=== PATIENT | male | born 1975 | race Caucasian/White ===

== ENCOUNTER 2023-03-07 20:44 | Inpatient (IN) | payer MEDICAID ==
[~2023-03-07] VITALS: Ht 177.8 cm; Wt 119.0 kg
[~2023-03-07 20:44] MED LIST: DILT30TA PO; LIS5T GT
[2023-03-07] MEDS ORDERED: hydrALAZINE HCL 20 MG/ML VL IV ONE (21:15)
[2023-03-07] MEDS ORDERED: FUROSEMIDE 40 MG/4 ML VIAL IV ONE (21:15)
[2023-03-07 21:52] LABS: Basophils # (auto) 0.1 10 ^3/uL (0-0.2); Basophils % (auto) 1.4 % (0.0-2.0); Eosinophils # (auto) 0.3 10 ^3/uL (0-0.8); Hematocrit 27.7 % (41.0-53.0); Hemoglobin 9.1 g/dL (13.5-17.5); Lymphocytes % (auto) 11.5 % (10.0-50.0); Mean Corpuscular Hgb Conc. 32.9 g/dL (32.0-36.0); Mean Corpuscular Volume 88.3 fL (80.0-100.0); Monocytes # (auto) 0.5 10 ^3/uL (0-1.3); Monocytes % (auto) 6.4 % (0.0-12.0); Neutrophils # (auto) 6.4 10 ^3/uL (1.6-8.6); Neutrophils % (auto) 76.7 % (37.0-80.0); Red Blood Cells 3.14 10^6/uL (4.5-5.90); Red Cell Distribution Width 15.4 % (11.8-14.3); White Blood Cell 8.4 10^3/uL (4.4-10.8)
[2023-03-07 22:13] LABS: Albumin 3.2 g/dL (3.4-5.0); Calcium 8.6 mg/dL (8.5-10.1); Magnesium 1.9 mg/dL (1.6-2.6)
[2023-03-07 22:18] LABS: BUN/Creatinine Ratio 11.9 (10.0-20.0); Bilirubin, Total 1.6 mg/dL (0.2-1.0)
[2023-03-07 22:19] LABS: INR 1.3 (0.9-1.15)
[2023-03-07 22:20] LABS: Urine Bacteria FEW /hpf (None Seen); Urine Blood 2+ /uL (Negative); Urine Hyaline Cast MOD /lpf (0 - 2); Urine Mucus FEW (None Seen); Urine Specific Gravity 1.017 (1.001-1.035); Urine WBC 17 /hpf (0 - 3)
[2023-03-07] MEDS ORDERED: AMPICILLIN & SULBACTAM SODIUM 3 GM in SODIUM CHL 0.9% 100 ML IV ONE (22:30)
[2023-03-07 22:37] LABS: Alcohol, Urine < 3.0 mg/dL (0-10); Amphetamine Screen, Urine POSITIVE (NEGATIVE); Barbiturate Scree,Urine NEGATIVE (NEGATIVE); Benzodiazephine Screen, Urine NEGATIVE (NEGATIVE); Cannabinoid Screen, Urine NEGATIVE (NEGATIVE); Cocaine Screen, Urine NEGATIVE (NEGATIVE); Opiate Scree,Urine NEGATIVE (NEGATIVE); Phencyclidine Screen, Urine NEGATIVE (NEGATIVE)
[2023-03-07] MEDS ORDERED: NITROGLYCERIN 0.4 MG SL TAB SL PRN (23:00)
[2023-03-07] MEDS ORDERED: hydrALAZINE HCL 20 MG/ML VL IV PRN (23:00)
[2023-03-07] MEDS ORDERED: DOCUSATE SOD 100 MG CAP PO PRN (23:00)
[2023-03-07] MEDS ORDERED: DEXTROSE (50%) 50ML SYRG IV PRN (23:00)
[2023-03-07] MEDS ORDERED: ASPirin 81 mg TAB PO ONE (23:00)
[2023-03-07] MEDS ORDERED: MORPHINE SULFATE INJ 2 MG/ml SYRG IV PRN (23:00)
[2023-03-07] MEDS ORDERED: ONDANSETRON HCL 4 MG/2 ML VIAL IV PRN (23:00)
[2023-03-07] MEDS ORDERED: CARVEDILOL 12.5 MG TAB PO ONE (23:15)
[2023-03-08] MEDS: AZITHROMYCIN 500MG/ 250ML 250 ML IV SCH (03:55)
[2023-03-08] MEDS ORDERED: DOXYCYCLINE 100MG/250ML 250 ML IV ONE (05:15)
[2023-03-08] MEDS: cefTRIAXone 1GM/50ML D5W 50 ML IV SCH (05:33)
[2023-03-08] MEDS: SODIUM CHLOR 0.9% PF (SALINE LOCK) 10ML VIAL/SYR IV SCH ×2 (05:52→14:04)
[2023-03-08] MEDS: ACCU-CHEK COMFORT CURVE STRIP VI SCH ×3 (06:38→17:05)
[2023-03-08] MEDS: InsuLIN REG 1unit/0.01ml Soln (100units/ml) SC SCH ×3 (06:39→17:00)
[2023-03-08 07:42] LABS: Potassium 3.7 mmol/L (3.5-5.1)
[2023-03-08 07:47] LABS: Basophils # (auto) 0.1 10 ^3/uL (0-0.2); Eosinophils # (auto) 0.4 10 ^3/uL (0-0.8); Monocytes # (auto) 0.7 10 ^3/uL (0-1.3); Red Blood Cells 2.84 10^6/uL (4.5-5.90)
[2023-03-08 07:49] LABS: Basophils % (auto) 1.3 % (0.0-2.0); Eosinophils % (auto) 4.8 % (0.0-7.0); Hematocrit 25.3 % (41.0-53.0); Hemoglobin 8.2 g/dL (13.5-17.5); Lymphocytes # (auto) 0.8 10 ^3/uL (0.4-5.4); Lymphocytes % (auto) 9.1 % (10.0-50.0); Mean Corpuscular Hgb Conc. 32.6 g/dL (32.0-36.0); Monocytes % (auto) 8.6 % (0.0-12.0); Neutrophils # (auto) 6.3 10 ^3/uL (1.6-8.6); Neutrophils % (auto) 76.2 % (37.0-80.0); Nucleated Red Blood Cells % 0.1 %; Red Cell Distribution Width 15.8 % (11.8-14.3); White Blood Cell 8.3 10^3/uL (4.4-10.8)
[2023-03-08 07:55] LABS: Albumin 2.9 g/dL (3.4-5.0); BUN/Creatinine Ratio 12.2 (10.0-20.0); Bilirubin, Total 1.2 mg/dL (0.2-1.0); Calcium 8.1 mg/dL (8.5-10.1); Total Protein 5.9 g/dL (6.4-8.2)
[2023-03-08] MEDS: FUROSEMIDE 40 MG/4 ML VIAL IV SCH (10:47)
[2023-03-08] MEDS: CARVEDILOL 12.5 MG TAB PO SCH (10:50)
[2023-03-08] MEDS: ASPirin 81 mg TAB PO SCH (10:50)
[2023-03-08] MEDS: amLODIPine BESYLATE 5 MG TAB PO SCH (10:51)
[2023-03-08] MEDS: HYDROcodone-ACET 5/325MG TAB PO PRN (12:33)
[2023-03-08] MEDS ORDERED: hydrALAZINE HCL 20 MG/ML VL IV PRN (13:15)
[2023-03-08 14:14] LABS: Cholesterol 107 mg/dL (< 200); Triglycerides 103 mg/dL (< 150)
[2023-03-08 14:16] LABS: HDL Cholesterol 27 mg/dL (40-59); LDL Cholesterol 67 mg/dL (< 100)
[2023-03-08] MEDS: IBUPROFEN 600 MG TAB PO PRN (20:32)
[2023-03-09] MEDS: ATORVASTATIN 20 MG TAB PO SCH ×2 (02:42→21:55)
[2023-03-09] MEDS: CARVEDILOL 12.5 MG TAB PO SCH ×3 (02:42→21:55)
[2023-03-09] MEDS: ACCU-CHEK COMFORT CURVE STRIP VI SCH ×5 (02:43→21:53)
[2023-03-09] MEDS: InsuLIN REG 1unit/0.01ml Soln (100units/ml) SC SCH ×5 (02:45→21:57)
[2023-03-09] MEDS: SODIUM CHLOR 0.9% PF (SALINE LOCK) 10ML VIAL/SYR IV SCH ×4 (02:51→20:50)
[2023-03-09] MEDS: AZITHROMYCIN 500MG/ 250ML 250 ML IV SCH ×2 (02:52→20:50)
[2023-03-09 03:01] VITALS: BP_SYST 150; BP_SYST 158; BP_DIAS 90; BP_DIAS 95
[2023-03-09] MEDS ORDERED: METF-370 PO (03:29)
[2023-03-09] MEDS ORDERED: FURO1TAB32 PO (03:29)
[2023-03-09] MEDS ORDERED: FLUO-125 PO (03:29)
[2023-03-09] MEDS ORDERED: SPIR25TA8 PO (03:29)
[2023-03-09] MEDS ORDERED: CARV25TA55 PO (03:29)
[2023-03-09] MEDS ORDERED: LISI40TA16 PO (03:29)
[2023-03-09] MEDS ORDERED: CLON0.1T PO (03:29)
[2023-03-09] MEDS ORDERED: ATOR10TA PO (03:29)
[2023-03-09 05:00] VITALS: BP 140/78
[2023-03-09] MEDS: cefTRIAXone 1GM/50ML D5W 50 ML IV SCH (06:52)
[2023-03-09] MEDS: IBUPROFEN 600 MG TAB PO PRN (08:29)
[2023-03-09] MEDS: ASPirin 81 mg TAB PO SCH (08:29)
[2023-03-09] MEDS: FUROSEMIDE 40 MG/4 ML VIAL IV SCH (08:29)
[2023-03-09] MEDS: amLODIPine BESYLATE 5 MG TAB PO SCH (08:30)
[2023-03-09 09:14] VITALS: BP 149/95
[2023-03-09 13:00] VITALS: BP 139/90
[2023-03-09 17:00] VITALS: BP 144/90
[2023-03-09] MEDS: HYDROcodone-ACET 5/325MG TAB PO PRN ×2 (17:06→21:59)
[2023-03-09 22:00] VITALS: BP 146/94
[2023-03-10 04:00] VITALS: BP 137/76
[2023-03-10 05:00] VITALS: BP 137/76
[2023-03-10 05:26] LABS: BUN/Creatinine Ratio 15.3 (10.0-20.0); Calcium 7.9 mg/dL (8.5-10.1); Potassium 3.1 mmol/L (3.5-5.1)
[2023-03-10] MEDS: cefTRIAXone 1GM/50ML D5W 50 ML IV SCH (06:35)
[2023-03-10] MEDS: SODIUM CHLOR 0.9% PF (SALINE LOCK) 10ML VIAL/SYR IV SCH ×3 (06:36→20:50)
[2023-03-10] MEDS: ACCU-CHEK COMFORT CURVE STRIP VI SCH ×4 (06:36→22:51)
[2023-03-10] MEDS: InsuLIN REG 1unit/0.01ml Soln (100units/ml) SC SCH ×4 (06:44→22:55)
[2023-03-10 08:01] LABS: Urine Bacteria FEW /hpf (None Seen); Urine Blood 1+ /uL (Negative); Urine Specific Gravity 1.005 (1.001-1.035); Urine WBC 1 /hpf (0 - 3)
[2023-03-10] MEDS ORDERED: POTASSIUM CHL 20 Meq TABLET PO ONE (09:00)
[2023-03-10] MEDS ORDERED: POTASSIUM EFFERVESENT TAB 25 MEQ PO ONE (09:00)
[2023-03-10 09:01] VITALS: BP 147/99
[2023-03-10] MEDS: FUROSEMIDE 40 MG/4 ML VIAL IV SCH (10:11)
[2023-03-10] MEDS: ASPirin 81 mg TAB PO SCH (10:12)
[2023-03-10] MEDS: CARVEDILOL 12.5 MG TAB PO SCH ×3 (10:12→22:50)
[2023-03-10] MEDS: amLODIPine BESYLATE 5 MG TAB PO SCH (10:14)
[2023-03-10 13:08] VITALS: BP 142/96
[2023-03-10] MEDS ORDERED: MAGNESIUM SULFATE 1GM/100ML 100 ML IV ONE (14:45)
[2023-03-10 17:00] VITALS: BP 137/92
[2023-03-10] MEDS: HYDROcodone-ACET 5/325MG TAB PO PRN (20:49)
[2023-03-10] MEDS: AZITHROMYCIN 500MG/ 250ML 250 ML IV SCH (20:50)
[2023-03-10 22:00] VITALS: BP 133/85
[2023-03-10] MEDS: ATORVASTATIN 20 MG TAB PO SCH (22:50)
[2023-03-11 05:00] VITALS: BP 149/90
[2023-03-11] MEDS: SODIUM CHLOR 0.9% PF (SALINE LOCK) 10ML VIAL/SYR IV SCH ×3 (05:37→21:11)
[2023-03-11] MEDS: cefTRIAXone 1GM/50ML D5W 50 ML IV SCH (05:37)
[2023-03-11] MEDS: ACCU-CHEK COMFORT CURVE STRIP VI SCH ×4 (06:23→21:11)
[2023-03-11] MEDS: InsuLIN REG 1unit/0.01ml Soln (100units/ml) SC SCH ×4 (06:25→21:09)
[2023-03-11 07:24] LABS: Basophils # (auto) 0.1 10 ^3/uL (0-0.2); Basophils % (auto) 1.4 % (0.0-2.0); Eosinophils # (auto) 0.5 10 ^3/uL (0-0.8); Monocytes # (auto) 0.5 10 ^3/uL (0-1.3)
[2023-03-11 07:27] LABS: Hematocrit 24.7 % (41.0-53.0); Hemoglobin 8.3 g/dL (13.5-17.5); Lymphocytes % (auto) 15.1 % (10.0-50.0); Mean Corpuscular Hemoglobin 29.6 pg (28.0-32.0); Mean Corpuscular Hgb Conc. 33.6 g/dL (32.0-36.0); Mean Corpuscular Volume 88.1 fL (80.0-100.0); Monocytes % (auto) 8.1 % (0.0-12.0); Neutrophils # (auto) 4.5 10 ^3/uL (1.6-8.6); Neutrophils % (auto) 68.4 % (37.0-80.0); Red Cell Distribution Width 15.9 % (11.8-14.3); White Blood Cell 6.6 10^3/uL (4.4-10.8)
[2023-03-11 07:38] LABS: Potassium 3.9 mmol/L (3.5-5.1)
[2023-03-11 07:43] LABS: Calcium 8.4 mg/dL (8.5-10.1); Magnesium 1.9 mg/dL (1.6-2.6)
[2023-03-11] MEDS ORDERED: ADENOSINE 112 MG in GIVE UN-DILUTED 0 ML IV STA (08:10)
[2023-03-11 09:00] VITALS: BP 152/86
[2023-03-11] MEDS: FUROSEMIDE 40 MG/4 ML VIAL IV SCH (09:45)
[2023-03-11] MEDS: CARVEDILOL 12.5 MG TAB PO SCH ×2 (09:45→21:10)
[2023-03-11] MEDS: ASPirin 81 mg TAB PO SCH (09:46)
[2023-03-11] MEDS: amLODIPine BESYLATE 5 MG TAB PO SCH (09:46)
[2023-03-11 11:13] VITALS: BP 143/82
[2023-03-11 13:00] VITALS: BP 142/94
[2023-03-11] MEDS ORDERED: MAGNESIUM SULFATE 1GM/100ML 100 ML IV ONE (13:30)
[2023-03-11] MEDS ORDERED: POTASSIUM CHL 20 Meq TABLET PO ONE (13:30)
[2023-03-11 14:46] LABS: Hepatitis C Antibody Negative (Negative)
[2023-03-11 17:00] VITALS: BP_SYST 138; BP_SYST 140; BP_DIAS 28; BP_DIAS 80
[2023-03-11] MEDS: HYDROcodone-ACET 5/325MG TAB PO PRN (21:10)
[2023-03-11] MEDS: AZITHROMYCIN 500MG/ 250ML 250 ML IV SCH (21:10)
[2023-03-11] MEDS: ATORVASTATIN 20 MG TAB PO SCH (21:10)
[2023-03-11 22:00] VITALS: BP 146/95
[2023-03-12] VITALS (8 sets, daily range): BP systolic 133–168; BP diastolic 81–100
[2023-03-12 05:56] LABS: Basophils # (auto) 0.1 10 ^3/uL (0-0.2); Eosinophils # (auto) 0.5 10 ^3/uL (0-0.8); Monocytes # (auto) 0.6 10 ^3/uL (0-1.3)
[2023-03-12 05:59] LABS: Basophils % (auto) 1.3 % (0.0-2.0); Eosinophils % (auto) 7.7 % (0.0-7.0); Hemoglobin 8.2 g/dL (13.5-17.5); Lymphocytes % (auto) 14.7 % (10.0-50.0); Mean Corpuscular Hemoglobin 29.3 pg (28.0-32.0); Mean Corpuscular Hgb Conc. 32.9 g/dL (32.0-36.0); Mean Corpuscular Volume 89.1 fL (80.0-100.0); Monocytes % (auto) 8.5 % (0.0-12.0); Neutrophils # (auto) 4.5 10 ^3/uL (1.6-8.6); Neutrophils % (auto) 67.8 % (37.0-80.0); Nucleated Red Blood Cells % 0.1 %; Red Blood Cells 2.81 10^6/uL (4.5-5.90); Red Cell Distribution Width 16.6 % (11.8-14.3); White Blood Cell 6.7 10^3/uL (4.4-10.8)
[2023-03-12 06:08] LABS: BUN/Creatinine Ratio 15.8 (10.0-20.0); Calcium 8.2 mg/dL (8.5-10.1); Magnesium 1.9 mg/dL (1.6-2.6); Potassium 4.1 mmol/L (3.5-5.1)
[2023-03-12] MEDS: InsuLIN REG 1unit/0.01ml Soln (100units/ml) SC SCH ×4 (06:09→22:43)
[2023-03-12] MEDS: cefTRIAXone 1GM/50ML D5W 50 ML IV SCH (06:09)
[2023-03-12] MEDS: SODIUM CHLOR 0.9% PF (SALINE LOCK) 10ML VIAL/SYR IV SCH ×3 (06:11→22:41)
[2023-03-12] MEDS: ACCU-CHEK COMFORT CURVE STRIP VI SCH ×4 (06:11→22:42)
[2023-03-12] MEDS: FUROSEMIDE 40 MG/4 ML VIAL IV SCH (10:00)
[2023-03-12] MEDS: CARVEDILOL 12.5 MG TAB PO SCH ×2 (10:00→22:41)
[2023-03-12] MEDS: ASPirin 81 mg TAB PO SCH (10:00)
[2023-03-12] MEDS: amLODIPine BESYLATE 5 MG TAB PO SCH (10:00)
[2023-03-12] MEDS ORDERED: MAGNESIUM SULFATE 1GM/100ML 100 ML IV ONE (13:15)
[2023-03-12] MEDS ORDERED: VERAPAMIL 2.5MG/ML INJ 2ML VIAL IV ONE (14:47)
[2023-03-12] MEDS ORDERED: MIDAZOLAM HCL 2MG/2ML 2ml VIAL (1mg/ml) ONE (14:47)
[2023-03-12] MEDS ORDERED: fentaNYL CITRATE 100 MCG/2 ML VL ONE (14:47)
[2023-03-12] MEDS ORDERED: ANGIOMAX 250 MG VIAL IV ONE (14:47)
[2023-03-12] MEDS ORDERED: SODIUM CHL 0.9% 50 ML ONE (14:48)
[2023-03-12] MEDS ORDERED: HEPARIN SODIUM (PORCINE) 5000 UNITS/ML 1ML VIAL ONE (14:51)
[2023-03-12] MEDS ORDERED: IOHEXOL 350 MG/ML 100ML IJ ONE ×2 (15:08→15:22)
[2023-03-12] MEDS ORDERED: hydrALAZINE HCL 20 MG/ML VL ONE (16:17)
[2023-03-12] MEDS: HYDROcodone-ACET 5/325MG TAB PO PRN (19:31)
[2023-03-12] MEDS: AZITHROMYCIN 500MG/ 250ML 250 ML IV SCH (22:35)
[2023-03-12] MEDS: ATORVASTATIN 20 MG TAB PO SCH (22:35)
[2023-03-13 01:44] VITALS: BP 154/88
[2023-03-13 05:53] VITALS: BP 135/45
[2023-03-13] MEDS: cefTRIAXone 1GM/50ML D5W 50 ML IV SCH (06:14)
[2023-03-13] MEDS: SODIUM CHLOR 0.9% PF (SALINE LOCK) 10ML VIAL/SYR IV SCH ×2 (06:14→14:00)
[2023-03-13] MEDS: InsuLIN REG 1unit/0.01ml Soln (100units/ml) SC SCH (06:14)
[2023-03-13] MEDS: ACCU-CHEK COMFORT CURVE STRIP VI SCH (06:15)
[2023-03-13 06:18] LABS: Basophils # (auto) 0.1 10 ^3/uL (0-0.2); Basophils % (auto) 1.2 % (0.0-2.0); Eosinophils # (auto) 0.4 10 ^3/uL (0-0.8); Hemoglobin 8.1 g/dL (13.5-17.5); Monocytes # (auto) 0.5 10 ^3/uL (0-1.3); Red Cell Distribution Width 16.3 % (11.8-14.3)
[2023-03-13 06:22] LABS: Eosinophils % (auto) 6.8 % (0.0-7.0); Hematocrit 24.3 % (41.0-53.0); Lymphocytes # (auto) 0.8 10 ^3/uL (0.4-5.4); Lymphocytes % (auto) 13.1 % (10.0-50.0); Mean Corpuscular Hgb Conc. 33.4 g/dL (32.0-36.0); Mean Corpuscular Volume 86.8 fL (80.0-100.0); Monocytes % (auto) 8.6 % (0.0-12.0); Neutrophils # (auto) 4.2 10 ^3/uL (1.6-8.6); Neutrophils % (auto) 70.3 % (37.0-80.0)
[2023-03-13 06:32] LABS: Albumin 2.9 g/dL (3.4-5.0); Potassium 4.3 mmol/L (3.5-5.1)
[2023-03-13 06:37] LABS: BUN/Creatinine Ratio 16.8 (10.0-20.0); Bilirubin, Total 0.8 mg/dL (0.2-1.0); Calcium 8.2 mg/dL (8.5-10.1); Magnesium 2.4 mg/dL (1.6-2.6); Total Protein 6.4 g/dL (6.4-8.2)
[2023-03-13 09:18] VITALS: BP 153/89
[2023-03-13] MEDS: ASPirin 81 mg TAB PO SCH (09:22)
[2023-03-13] MEDS: FUROSEMIDE 40 MG/4 ML VIAL IV SCH (09:22)
[2023-03-13] MEDS: CARVEDILOL 12.5 MG TAB PO SCH (09:23)
[2023-03-13] MEDS: amLODIPine BESYLATE 5 MG TAB PO SCH (09:24)
[2023-03-13 12:29] VITALS: BP 133/87
[2023-03-13 16:55] VITALS: BP 136/88
== END 2023-03-13 18:59 | disposition home or self-care (01) | DRG 190 ==
LOC: ER 20:44 → TELE 23:07 → TELE-WESTW 03-08 23:21
PROVIDERS: ADMIT Nurse Practitioner Family; ATTEND Family Medicine
PROC: B2111ZZ Fluoroscopy of Multiple Coronary Arteries using Low Osmolar Contrast (ICD-10-PCS; principal; 2023-03-12)
PROC: 4A023N7 Measurement of Cardiac Sampling and Pressure, Left Heart, Percutaneous Approach (ICD-10-PCS; 2023-03-12)
PROC: B240ZZ3 Ultrasonography of Single Coronary Artery, Intravascular (ICD-10-PCS; 2023-03-12)
PROC: B2151ZZ Fluoroscopy of Left Heart using Low Osmolar Contrast (ICD-10-PCS; 2023-03-12)
DX: I25.10 Atherosclerotic heart disease of native coronary artery without angina pectoris (principal); I21.A1 Myocardial infarction type 2; J96.01 Acute respiratory failure with hypoxia; I50.43 Acute on chronic combined systolic (congestive) and diastolic (congestive) heart failure; N17.9 Acute kidney failure, unspecified; J18.9 Pneumonia, unspecified organism; I13.0 Hypertensive heart and chronic kidney disease with heart failure and stage 1 through stage 4 chronic kidney disease, or unspecified chronic kidney disease; D63.8 Anemia in other chronic diseases classified elsewhere; E11.22 Type 2 diabetes mellitus with diabetic chronic kidney disease; E11.65 Type 2 diabetes mellitus with hyperglycemia; I16.0 Hypertensive urgency; E66.01 Morbid (severe) obesity due to excess calories; F15.10 Other stimulant abuse, uncomplicated; N18.32 Chronic kidney disease, stage 3b; N39.0 Urinary tract infection, site not specified; Z59.00 Homelessness unspecified; Z91.199 Patient's noncompliance with other medical treatment and regimen due to unspecified reason; Z68.41 Body mass index [BMI] 40.0-44.9, adult
CPT/HCPCS: 36415; 71045; 76775; 78452; 80048; 80053; 80061; 80307; 81001; 82570; 82962; 83036; 83735; 83880; 84156; 84300; 84443; 84484; 85025; 85379; 85610; 85730; 86803; 86850; 86900; 86901; 87086; 87340; 93005; 93017; 93306; 93925; 93970; 96365; 96375; 99152; 99291; C1887; G0378; J0153; J0696; J1815; J2250; J3490

== ENCOUNTER 2023-11-03 00:52 | Inpatient (IN) | payer MEDICAID ==
[~2023-11-03] VITALS: Ht 177.8 cm; Wt 124.2 kg
[~2023-11-03 00:52] MED LIST changes: +ATOR10TA PO; +CARV25TA55 PO; +CLON0.1T PO; +FLUO-125 PO; +FURO1TAB32 PO; +LISI40TA16 PO; +METF-370 PO; +SPIR25TA8 PO
[2023-11-03] MEDS: ONDANSETRON HCL 4 MG/2 ML VIAL IV ONE (03:32)
[2023-11-03] MEDS: SODIUM CHLORIDE 0.9% 1,000 ML IV ONE (03:32)
[2023-11-03] MEDS: PANTOPRAZOLE 40 MG/10 ML VIAL INJ IV ONE (03:32)
[2023-11-03 03:38] LABS: Basophils # (auto) 0.1 10 ^3/uL (0-0.2); Basophils % (auto) 0.9 % (0.0-2.0); Eosinophils # (auto) 0.3 10 ^3/uL (0-0.8); Eosinophils % (auto) 3.8 % (0.0-7.0); Hematocrit 24.3 % (41.0-53.0); Hemoglobin 7.9 g/dL (13.5-17.5); Lymphocytes # (auto) 0.9 10 ^3/uL (0.4-5.4); Lymphocytes % (auto) 11.3 % (10.0-50.0); Mean Corpuscular Hgb Conc. 32.5 g/dL (32.0-36.0); Mean Corpuscular Volume 95.2 fL (80.0-100.0); Monocytes # (auto) 0.9 10 ^3/uL (0-1.3); Monocytes % (auto) 11.1 % (0.0-12.0); Neutrophils # (auto) 5.8 10 ^3/uL (1.6-8.6); Neutrophils % (auto) 72.9 % (37.0-80.0); Red Blood Cells 2.56 10^6/uL (4.5-5.90); Red Cell Distribution Width 16.4 % (11.8-14.3)
[2023-11-03 03:57] LABS: Alanine Aminotransferase 30 U/L (7-40); Albumin 3.7 g/dL (3.2-4.8); Alkaline Phosphatase 64 U/L (46-116); Anion Gap 10 (5-15); Aspartate Aminotransferase 25 U/L (13-40); BUN/Creatinine Ratio 14.6 (10.0-20.0); Bilirubin, Total 0.5 mg/dL (0.2-1.0); Blood Urea Nitrogen 46 mg/dL (9-23); Calcium 8.4 mg/dL (8.7-10.4); Carbon Dioxide 21 mmol/L (20-30); Chloride 111 mmol/L (98-107); Glucose 99 mg/dL (74-106); Magnesium 1.7 mg/dL (1.6-2.6); Potassium 3.9 mmol/L (3.5-5.1); Sodium 142 mmol/L (136-145); Total Protein 6.4 g/dL (5.7-8.2)
[2023-11-03 05:20] LABS: INR 1.08 (0.9-1.15); Prothrombin Time 11.3 sec (9.3-11.8)
[2023-11-03] MEDS: PANTOPRAZOLE 40mg/50ML NS AE 50 ML IV ONE (05:57)
[2023-11-03 06:33] LABS: Blood Alcohol < 3.0 mg/dL (<10)
[2023-11-03 08:35] VITALS: PULSE 68; RESP 18; O2SAT 97
[2023-11-03] MEDS ORDERED: NITROGLYCERIN 0.4 MG SL TAB SL PRN (12:45)
[2023-11-03] MEDS ORDERED: MORPHINE SULFATE INJ 2 MG/ml SYRG IV PRN (12:45)
[2023-11-03] MEDS: SODIUM CHLORIDE 0.9% 1,000 ML IV SCH (12:58)
[2023-11-03 12:59] LABS: Amphetamine Screen, Urine Pos (NEGATIVE); Barbiturate Scree,Urine Neg (NEGATIVE); Benzodiazephine Screen, Urine Neg (NEGATIVE); Cocaine Screen, Urine Neg (NEGATIVE); Opiate Scree,Urine Neg (NEGATIVE)
[2023-11-03 13:00] LABS: Cannabinoid Screen, Urine Neg (NEGATIVE); Phencyclidine Screen, Urine Neg (NEGATIVE)
[2023-11-03 13:06] LABS: Urine Bacteria NONE SEEN /hpf (None Seen); Urine Blood 3+ /uL (Negative); Urine Clarity Clear (Clear); Urine Color Colorless (Yellow); Urine Protein, UAD 1+ (Negative); Urine Specific Gravity 1.011 (1.001-1.035); Urine Urobilinogen Normal (Negative); Urine WBC 4 /hpf (0 - 3); Urine pH 5.5 (5.0-8.0)
[2023-11-03] MEDS: HYDROcodone-ACET 5/325MG TAB PO PRN (13:06)
[2023-11-04 01:59] VITALS: PULSE 86; RESP 16; O2SAT 95
[2023-11-04 06:01] LABS: Basophils # (auto) 0.1 10 ^3/uL (0-0.2); Eosinophils # (auto) 0.3 10 ^3/uL (0-0.8); Hematocrit 20.3 % (41.0-53.0); Hemoglobin 7.1 g/dL (13.5-17.5); Monocytes # (auto) 0.6 10 ^3/uL (0-1.3)
[2023-11-04 06:04] LABS: Basophils % (auto) 1.2 % (0.0-2.0); Eosinophils % (auto) 4.3 % (0.0-7.0); Lymphocytes # (auto) 0.8 10 ^3/uL (0.4-5.4); Lymphocytes % (auto) 11.8 % (10.0-50.0); Mean Corpuscular Hemoglobin 34.3 pg (28.0-32.0); Mean Corpuscular Hgb Conc. 34.9 g/dL (32.0-36.0); Mean Corpuscular Volume 98.2 fL (80.0-100.0); Monocytes % (auto) 8.9 % (0.0-12.0); Neutrophils # (auto) 4.9 10 ^3/uL (1.6-8.6); Neutrophils % (auto) 73.8 % (37.0-80.0); Red Blood Cells 2.07 10^6/uL (4.5-5.90); Red Cell Distribution Width 16.5 % (11.8-14.3); White Blood Cell 6.6 10^3/uL (4.4-10.8)
[2023-11-04 06:20] LABS: Alanine Aminotransferase 18 U/L (7-40); Albumin 3.4 g/dL (3.2-4.8); Alkaline Phosphatase 62 U/L (46-116); Anion Gap 10 (5-15); Aspartate Aminotransferase 23 U/L (13-40); BUN/Creatinine Ratio 14.5 (10.0-20.0); Bilirubin, Total 0.4 mg/dL (0.2-1.0); Blood Urea Nitrogen 46 mg/dL (9-23); Calcium 8.3 mg/dL (8.5-10.1); Carbon Dioxide 21 mmol/L (20-30); Chloride 111 mmol/L (98-107); Glucose 109 mg/dL (74-106); Potassium 4.1 mmol/L (3.5-5.1); Sodium 142 mmol/L (136-145); Total Protein 5.8 g/dL (5.7-8.2)
[2023-11-04] MEDS: MORPHINE SULFATE INJ 2 MG/ml SYRG IV PRN (08:15)
[2023-11-04] MEDS: ONDANSETRON HCL 4 MG/2 ML VIAL IV PRN (08:15)
[2023-11-04 08:50] VITALS: PULSE 82; RESP 12; O2SAT 100
[2023-11-04] MEDS: PANTOPRAZOLE 40 MG TAB PO SCH (13:00)
[2023-11-04 19:45] VITALS: PULSE 79; RESP 12; O2SAT 96
[2023-11-04] MEDS: ACETAMINOPHEN 325 MG TAB PO PRN (21:25)
[2023-11-05] VITALS (12 sets, daily range): BP systolic 126–172; BP diastolic 67–100; PULSE 75–84; RESP 16–18; TEMP 97.7–98.5; O2SAT 94–99
[2023-11-05 06:53] LABS: Basophils # (auto) 0.1 10 ^3/uL (0-0.2); Eosinophils # (auto) 0.3 10 ^3/uL (0-0.8); Eosinophils % (auto) 6.2 % (0.0-7.0); Lymphocytes # (auto) 0.8 10 ^3/uL (0.4-5.4)
[2023-11-05 06:56] LABS: Hematocrit 20.2 % (41.0-53.0); Lymphocytes % (auto) 15.6 % (10.0-50.0); Mean Corpuscular Hemoglobin 32.8 pg (28.0-32.0); Mean Corpuscular Hgb Conc. 34.2 g/dL (32.0-36.0); Mean Corpuscular Volume 96.1 fL (80.0-100.0); Monocytes # (auto) 0.6 10 ^3/uL (0-1.3); Monocytes % (auto) 11.3 % (0.0-12.0); Neutrophils # (auto) 3.3 10 ^3/uL (1.6-8.6); Neutrophils % (auto) 65.9 % (37.0-80.0); Red Cell Distribution Width 16.3 % (11.8-14.3); White Blood Cell 5.1 10^3/uL (4.4-10.8)
[2023-11-05 07:02] LABS: Protein, Urine 59.7 mg/dL (0.0-11.9)
[2023-11-05 07:05] LABS: Creatinine, Urine 63.79 mg/dL (30.0-125.0); Urine Protein/Creatinine Ratio 0.94
[2023-11-05 07:19] LABS: Hemoglobin 6.9 g/dL (13.5-17.5)
[2023-11-05] MEDS: hydrALAZINE HCL 20 MG/ML VL IV PRN (15:18)
[2023-11-05] MEDS: cloNIDine HCL 0.1 MG TAB PO SCH (16:40)
[2023-11-06 05:00] VITALS: BP 144/79; PULSE 80; RESP 22; TEMP 98.5; O2SAT 97
[2023-11-06 06:38] LABS: Chloride 111 mmol/L (98-107); Potassium 4.2 mmol/L (3.5-5.1); Sodium 139 mmol/L (136-145)
[2023-11-06 06:39] LABS: Anion Gap 8 (5-15); Carbon Dioxide 20 mmol/L (20-30)
[2023-11-06 06:44] LABS: BUN/Creatinine Ratio 15.6 (10.0-20.0); Blood Urea Nitrogen 45 mg/dL (9-23); Glucose 122 mg/dL (74-106)
[2023-11-06 06:58] LABS: Basophils # (auto) 0.1 10 ^3/uL (0-0.2); Eosinophils # (auto) 0.3 10 ^3/uL (0-0.8); Eosinophils % (auto) 5.2 % (0.0-7.0); Hematocrit 21.1 % (41.0-53.0); Hemoglobin 7.3 g/dL (13.5-17.5); Lymphocytes # (auto) 0.7 10 ^3/uL (0.4-5.4); Lymphocytes % (auto) 12.6 % (10.0-50.0); Mean Corpuscular Hgb Conc. 34.7 g/dL (32.0-36.0); Mean Corpuscular Volume 98.1 fL (80.0-100.0); Monocytes # (auto) 0.5 10 ^3/uL (0-1.3); Monocytes % (auto) 9.8 % (0.0-12.0); Neutrophils # (auto) 3.9 10 ^3/uL (1.6-8.6); Neutrophils % (auto) 71.4 % (37.0-80.0); Red Blood Cells 2.15 10^6/uL (4.5-5.90); Red Cell Distribution Width 15.9 % (11.8-14.3); White Blood Cell 5.5 10^3/uL (4.4-10.8)
[2023-11-06 08:00] VITALS: BP 143/75; PULSE 81; PULSE 84; RESP 22; TEMP 98.1; O2SAT 99
[2023-11-06 09:00] VITALS: BP 143/75; PULSE 81; RESP 22; TEMP 98.1; O2SAT 99
[2023-11-06] MEDS ORDERED: FURO40TA4 PO (10:04)
[2023-11-06] MEDS ORDERED: INSLANTI SC (10:06)
[2023-11-06 13:00] VITALS: BP 145/85; PULSE 69; RESP 20; TEMP 97.6; O2SAT 99
[2023-11-06] MEDS ORDERED: CARV25TA55 PO (16:13)
[2023-11-06] MEDS ORDERED: DILT30TA PO (16:13)
[2023-11-06 16:42] VITALS: BP 145/85; PULSE 69; RESP 20; TEMP 36.4; O2SAT 99
[2023-11-06 17:00] VITALS: BP 144/88; PULSE 74; RESP 18; TEMP 97.6; O2SAT 98
[2023-11-06] MEDS ORDERED: FUROSEMIDE 40 MG TAB PO SCH (22:00)
[2023-11-07 08:38] LABS: Hepatitis B Surface Antigen Negative (Negative)
[2023-11-07 08:59] LABS: Hepatitis C Antibody Negative (Negative)
== END 2023-11-06 18:00 | disposition home or self-care (01) | DRG 248 ==
LOC: ER 00:52 → EDBD 00:52 → TELE 12:38 → TELE-EAST 11-04 23:32
PROVIDERS: ADMIT Internal Medicine; ATTEND Internal Medicine
PROC: 30233N1 Transfusion of Nonautologous Red Blood Cells into Peripheral Vein, Percutaneous Approach (ICD-10-PCS; principal; 2023-11-05)
DX: A04.72 Enterocolitis due to Clostridium difficile, not specified as recurrent (principal); I50.33 Acute on chronic diastolic (congestive) heart failure; N17.9 Acute kidney failure, unspecified; E11.22 Type 2 diabetes mellitus with diabetic chronic kidney disease; D63.1 Anemia in chronic kidney disease; K70.9 Alcoholic liver disease, unspecified; N18.4 Chronic kidney disease, stage 4 (severe); I13.0 Hypertensive heart and chronic kidney disease with heart failure and stage 1 through stage 4 chronic kidney disease, or unspecified chronic kidney disease; Z68.39 Body mass index [BMI] 39.0-39.9, adult; E11.65 Type 2 diabetes mellitus with hyperglycemia; E66.9 Obesity, unspecified; Z59.00 Homelessness unspecified; Z53.29 Procedure and treatment not carried out because of patient's decision for other reasons; R15.9 Full incontinence of feces; Z80.1 Family history of malignant neoplasm of trachea, bronchus and lung
CPT/HCPCS: 36415; 71045; 76775; 80048; 80053; 80307; 80320; 81001; 82270; 82306; 82570; 83735; 83880; 83970; 84100; 84156; 84300; 84484; 85025; 85048; 85610; 85730; 86803; 86850; 86900; 86901; 86920; 87045; 87081; 87177; 87340; 87427; 96365; 96375; C9113; G0378; J2405